=== PATIENT | male | born 1965 | race African-American/Black ===

== ENCOUNTER 2016-09-10 18:37 | Emergency (ER) | payer MEDICAID ==
--- NOTE | ~2016-09-10 | CR71 ---
[facility] A Service of [facility] RADIOLOGY TEXT RESULTS PATIENT: KAMI OLMEDO LOCATION: CFTX : [id number] UNIT #: [id number] AGE: [address]: Jessica Altman SEX: M ORDER DR: [id number] [facility] [address] [place], [place] [address] [id number] E MR#: [id number] Acc #: [id number] NAME: KAMI OLMEDO : 1965 SEX: M STUDY DATE/TIME: 09/10/2016 19:10 UNIT: [facility] ROOM: STUDY DESCRIPTION: CR Chest Single View Attending Physician: Jessica Altman Pa-C Ordering Physician: Ed Doc Raghu Castaneda Primary Care Physician: No Primary Care Physician MEDICAL IMAGING REPORT This report is preliminary unless electronic signature is present EXAM Portable chest, 09/10/2016. HISTORY Cough and chest congestion and shortness breath for 3 weeks. FINDINGS A single AP portable view of the chest shows both lungs to be clear. The heart is normal in size. The mediastinal contour is normal. No significant bone abnormalities are seen. IMPRESSION Normal portable chest. Dictated by... Stefan Costa M.D. THIS IS AN ELECTRONICALLY VERIFIED REPORT Stefan Costa M.D. at 09/11/2016 2:15 PM ANNA/daniel TD: 09/11/2016 03:31 JOB #: [id number] MEDICAL IMAGING REPORT Page 1 of 1 COPY
[~2016-09-10 18:37] MED LIST: AMOXICILLIN500 M1 PO
== END 2016-09-10 20:04 | disposition home or self-care (01) ==
LOC: CFTX 18:37 → CED 18:37 → CFTX 19:06
DX: J06.9 Acute upper respiratory infection, unspecified (principal); Z88.8 Allergy status to other drugs, medicaments and biological substances; F17.210 Nicotine dependence, cigarettes, uncomplicated
CPT/HCPCS: 71010; 99283